=== PATIENT | female | born 1975 | race Caucasian/White ===

== ENCOUNTER 2019-07-13 17:37 | Emergency (ER) | payer OTHER, SELFPAY ==
[2019-07-13 18:15] VITALS: BP 129/81; PULSE 70; RESP 16; TEMP 37.4; O2SAT 100
[2019-07-13] MEDS: TETANUS,DIPHTHERIA,AC PERTUSSIS ADULT 0.5 ML (ADACEL) IM (19:21)
--- NOTE | 2019-07-13 19:22 | ED.GENADULT ---
HPI - General Adult General Chief complaint: Extremity Injury, Lower Stated complaint: right leg lac and sore throat Time Seen by Provider: 07/13/19 19:22 Source: patient and RN notes reviewed Mode of arrival: ambulatory Limitations: no limitations History of Present Illness HPI narrative: 43-year-old female present with complaints of laceration to right media leg, caused by a butter knife past 7 hours. Ibuprofen and Neosporin with little relief. Katharina says approximately at noon she was swinging a plastic bag and it had a butter knife in it causing the laceration. Denies focal weakness, altered sensation, rash, fever or chills, or nausea or vomiting and abdominal pain. Denies pain, numbness or tingling, or loss of mobility. No foreign body sensation. Tetanus NOT up-to-date per Katharina, will update today. Katharina denies being , LMP unknown says she is per menopausal. Complaints of sore throat for 3 days. Ibuprofen without relief. No high fevers, drooling, neck or throat swelling. Pain is bilateral. Hurts to swallow. Exacerbation factors consist of eating and drinking. Rhinorrhea. and nasal congestion. Intermittent hoarseness. No nausea, vomiting, or abdominal pain. Tolerating liquids well. Denies chills, dyspnea, difficulty swallowing, jaw pain, dental pain, facial pain, foreign body sensation, and rash. Remains active. Complaints of dental pain for 1 day. Ibuprofen without relief. Denies any drainage. No fever. LT lower jaw swelling. No neck swelling. No limitation with speaking or swallowing. Has history of dental caries. Has not seen a dentist in awhile. No dental trauma. No oral lesions. Exacerbating factors consist of chewing on LT side, eating and drinking cold items. Relieving factors not eating. No dentures or bridges. Tolerating liquids well. Some parts of this dictation were generated by voice recognition software and may contain typographical and/or grammatical inaccuracies. Related Data Home Medications Medication Instructions Recorded Confirmed acyclovir 400 mg PO BID 07/13/19 07/13/19 acyclovir 400 mg PO BID 07/13/19 07/13/19 albuterol sulfate 1 inh INHALATION QID 07/13/19 07/13/19 albuterol sulfate 2.5 mg INHALATION Q4H PRN 07/13/19 07/13/19 bupropion HCl 150 mg PO BID 07/13/19 07/13/19 cetirizine 10 mg PO DAILY 07/13/19 07/13/19 meloxicam 15 mg PO DAILY 07/13/19 07/13/19 pregabalin [Lyrica] 75 mg PO BID 07/13/19 07/13/19 Allergies Allergy/AdvReac Type Severity Reaction Status Date / Time Sulfa (Sulfonamide Allergy Unknown Rash Verified 07/13/19 19:16 Antibiotics) Review of Systems Review of Systems: Narrative: CONSTITUTIONAL: Denies fever, chills, sweats. EYES: Denies visual changes, redness, discharge. ENT: Complains of rhinorrhea, congestion, sore throat, LT dental pain and jaw swelling. Denies otalgia. CARDIOVASCULAR: Denies chest pain, palpitations, edema. RESPIRATORY: Denies dyspnea, wheezing. Complains of dry cough. GASTROINTESTINAL: Denies abdominal pain, nausea, vomiting, or diarrhea. GENITOURINARY: Denies dysuria, hematuria, abnormal discharge. SKIN: Denies rash or itching. Complains of laceration to right media leg (below RT knee). MUSCULOSKELETAL: Denies acute back pain, joint pain, or myalgia. NEUROLOGIC: Denies numbness or focal weakness. PSYCHIATRIC: Denies anxiety or depression. [facility] Past Medical History Medical History (Updated 07/20/19 @ 01:39 by KERI Chaudhry) Allergies Arthritis Asthma COPD (chronic obstructive pulmonary disease) Depression Fibromyalgia Herpes simplex Surgical History Surgical History (Updated 07/20/19 @ 01:35 by KERI Chaudhry) History of tonsillectomy Family History Family History (Updated 07/20/19 @ 01:35 by KERI Chaudhry) Mother Hypertension Social History Social History (Updated 07/20/19 @ 01:37 by KERI Chaudhry) Smoking packs per day: 1 Smoking cigarettes per day: 2
== END 2019-07-13 20:14 | disposition home or self-care (01) ==
PROVIDERS: Emergency Provider Nurse Practitioner Family; PCP Internal Medicine Gastroenterology
DX: S81.811A Laceration without foreign body, right lower leg, initial encounter (principal); W26.0XXA Contact with knife, initial encounter; K08.89 Other specified disorders of teeth and supporting structures; J00 Acute nasopharyngitis [common cold]; J01.90 Acute sinusitis, unspecified; F17.210 Nicotine dependence, cigarettes, uncomplicated; Z23 Encounter for immunization; M19.90 Unspecified osteoarthritis, unspecified site; J44.9 Chronic obstructive pulmonary disease, unspecified; M79.7 Fibromyalgia
CPT/HCPCS: 12001; 90471; 90715; 99213; G0463